=== PATIENT | female | born 1945 | race Caucasian/White ===

== ENCOUNTER 2023-06-17 00:18 | Day surgery (SDC) | payer OTHER, SELFPAY ==
[2023-06-08 12:02] VITALS: BMI 27.6
--- NOTE | 2023-06-16 10:14 | PM.HPGS ---
History of Present Illness History of Present Illness Consent: Risks, benefits, and alternatives have been discussed and questions answered. Patient agrees to proceed with procedure. Chief complaint: hx of colon polyps Narrative: Caty Nj is a 78 year old female with history of colon polyps who is referred for colon cancer screening. Review of Systems Review of Systems: All systems reviewed & are unremarkable except as noted in HPI and below PMFSH Social History Social History Smoking status: Never smoker Alcohol intake: current Alcohol use details: Socially Substance use type: does not use Living arrangements: other Additional living arrangements comments: with sp Meds Home Medications and Allergies Home Medications Medication Instructions Recorded Confirmed Type atorvastatin 10 mg tablet 10 mg PO DAILY 06/08/23 06/17/23 History famotidine 40 mg tablet 40 mg PO DAILY 06/08/23 06/17/23 History pantoprazole 40 mg tablet,delayed 40 mg PO DAILY 06/08/23 06/17/23 History release vit C 250 mg-vit E 90 mg-zinc 40 1 tablet PO BID 06/08/23 06/17/23 History mg-copper 1 [id number] capsule (PreserVision AREDS-2) Allergies Allergy/AdvReac Type Severity Reaction Status Date / Time alendronate sodium AdvReac Other Verified 06/17/23 06:16 [From Fosamax] citalopram AdvReac Anxiety Verified 06/17/23 06:16 codeine AdvReac Other Verified 06/17/23 06:16 Exam Resp: Auscultation: clear to auscultation bilaterally Cardio: Rate: regular rate Rhythm: regular rhythm GI: GI Palp: Yes Soft to palpation and No Tenderness to palpation present (GI) Assessment and Plan Assessment and plan (1) Colon cancer screening: Code(s): Z12.11 - Encounter for screening for malignant neoplasm of colon Status: Acute Assessment and Plan: Colonoscopy with possible biopsy or polypectomy or cautery or injection of substances.
[2023-06-17 06:17] VITALS: BP 169/79; PULSE 89; RESP 17; TEMP 36.3; O2SAT 99; BMI 28.0
[2023-06-17] MEDS: LACTATED RINGERS 1,000 ML 150 ML IV CONT (06:28)
--- NOTE | 2023-06-17 07:26 | P.PNAN_ITS ---
Anes - Initial Pre Proc Eval Procedure: Operation Date: 06/17/23 07:30 Proposed Procedures p Colonoscopy - Hector Zuniga MD Date/Time: 06/17/23 07:26 Surgeon: Hector Zuniga MD Pre Op Diagnosis: hx of colon polyps Patient Data Age: 78 Gender: F Height: 1.57 m Weight: 69.6 kg Last Vital Signs Temp 97.4 F L 06/17/23 06:17 Pulse 89 06/17/23 06:17 Resp 17 06/17/23 06:17 BP 169/79 H 06/17/23 06:17 Pulse Ox 99 06/17/23 06:17 O2 Del Method Room Air 06/17/23 06:17 Allergies Allergy/AdvReac Type Severity Reaction Status Date / Time alendronate sodium AdvReac Other Verified 06/17/23 06:16 [From Fosamax] citalopram AdvReac Anxiety Verified 06/17/23 06:16 codeine AdvReac Other Verified 06/17/23 06:16 Home Medications Medication Instructions Recorded Confirmed Type atorvastatin 10 mg tablet 10 mg PO DAILY 06/08/23 06/17/23 History famotidine 40 mg tablet 40 mg PO DAILY 06/08/23 06/17/23 History pantoprazole 40 mg tablet,delayed 40 mg PO DAILY 06/08/23 06/17/23 History release vit C 250 mg-vit E 90 mg-zinc 40 1 tablet PO BID 06/08/23 06/17/23 History mg-copper 1 [id number] capsule (PreserVision AREDS-2) Patient hx anesthesia problems: none Family hx anesthesia problems: none Results Review: All pre-operative results and documents have been reviewed as part of the pre- operative evaluation. [facility] Social History Social History Smoking status: Never smoker Alcohol intake: current Alcohol use details: Socially Substance use type: does not use Living arrangements: other Additional living arrangements comments: with sp Anes - Eval Final PreProcedure Day of Procedure 06/17/23 07:26 Patient weight: normal Heart: regular rate and rhythm Lungs: clear to auscultation Airway: Mallampati scale class II Neurological: alert and oriented Last oral intake: >/= 8 hours ASA classification: II Emergent: no Anesthetic plan: proceed Anesthesia type and monitoring: general GIVS and standard monitoring Results Review: All pre-operative results and documents have been reviewed as part of the pre- operative evaluation. Informed Consent: The patient's anesthetic plan and its attendant risks and benefits were discussed with the patient/family/POA. Questions were solicited and answers provided to the satisfaction of the patient/family/POA.
[2023-06-17 07:48] VITALS: BP 106/68; PULSE 79; RESP 23; O2SAT 100
[2023-06-17 07:58] VITALS: BP 133/77; PULSE 78; RESP 23; O2SAT 100
[2023-06-17 08:08] VITALS: BP 144/74; PULSE 67; RESP 19; O2SAT 100
== END 2023-06-17 08:12 | disposition home or self-care (01) ==
PROVIDERS: Visit Provider Internal Medicine Gastroenterology
PROC: 0DJD8ZZ Inspection of Lower Intestinal Tract, Via Natural or Artificial Opening Endoscopic (ICD-10-PCS; CPT 45378; principal; 2023-06-17 07:30)
DX: Z12.11 Encounter for screening for malignant neoplasm of colon (principal); K57.30 Diverticulosis of large intestine without perforation or abscess without bleeding; K64.8 Other hemorrhoids; Z86.010 Personal history of colon polyps
CPT/HCPCS: G0105; J2001; J2704; J7120